=== PATIENT | male | born 2000 | race Caucasian/White ===

== ENCOUNTER 2022-05-02 09:09 | Emergency (ER) | payer OTHER ==
[~2022-05-02] VITALS: Ht 180.3 cm; Wt 67.4 kg
[2022-05-02] MEDS ORDERED: ACET32TAB PO (09:46)
[2022-05-02] MEDS ORDERED: IBUP-1114 PO (09:46)
[2022-05-02] MEDS ORDERED: IBUPROFEN 600MG TAB PO ONE (11:05)
[2022-05-02 11:21] VITALS: BP 109/57
== END 2022-05-02 11:29 | disposition home or self-care (01) ==
LOC: M ED 09:09
DX: U07.1 COVID-19 (principal); J02.9 Acute pharyngitis, unspecified

== ENCOUNTER → 2025-04-13 | Outpatient (CLI) | payer OTHER ==
[~2025-04-13] MED LIST: ACET32TAB PO; IBUP-1114 PO
== END ==
LOC: M RAD 06:52
PROVIDERS: ATTEND Physician Assistant Medical
DX: M51.27 Other intervertebral disc displacement, lumbosacral region (principal)

== ENCOUNTER 2025-04-25 11:31 | Emergency (ER) | payer OTHER ==
[~2025-04-25] VITALS: Ht 180.3 cm; Wt 71.5 kg
[2025-04-25] MEDS ORDERED: LIDO1ADH93 TOP (12:18)
[2025-04-25] MEDS: GABAPENTIN 300 MG CAP PO ONE (13:42)
[2025-04-25] MEDS: KETOROLAC 30 MG/ML 1 ML VIAL IV ONE (14:54)
[2025-04-25] MEDS ORDERED: NEUR300C PO (15:04)
[2025-04-25] MEDS ORDERED: MEDR4PAK PO (15:04)
[2025-04-25 15:51] VITALS: BP 129/81; TEMP 97.5; O2SAT 98
== END 2025-04-25 15:52 | disposition home or self-care (01) ==
LOC: M ED 11:31
DX: M54.40 Lumbago with sciatica, unspecified side (principal); Z79.899 Other long term (current) drug therapy; Z79.891 Long term (current) use of opiate analgesic; Z79.1 Long term (current) use of non-steroidal anti-inflammatories (NSAID)
CPT/HCPCS: 72131; 96374; 96375; 99284; J1885; J2919

== ENCOUNTER 2025-05-21 23:00 | Emergency (ER) | payer OTHER ==
[~2025-05-21] VITALS: Ht 175.3 cm; Wt 72.7 kg
[~2025-05-21 23:00] MED LIST changes: +LIDO1ADH93 TOP; +MEDR4PAK PO; +NEUR300C PO
[2025-05-22] MEDS: ONDANSETRON 4MG 2ML VIAL IV ONE (02:26)
[2025-05-22] MEDS: ACETAMINOPHEN *IV* 1,000 MG in IV 1 EA IV ONE (02:26)
[2025-05-22] MEDS: METHOCARBAMOL 1,000 MG/10 ML VIAL IV ONE (02:26)
[2025-05-22] MEDS: KETOROLAC 30 MG/ML 1 ML VIAL IV ONE (02:26)
[2025-05-22] MEDS: MORPHINE 4 MG/ML 1 ML VIAL IV PRN (02:27)
[2025-05-22] MEDS ORDERED: METH-1165 PO (04:33)
[2025-05-22] MEDS ORDERED: NAPR-837 PO (04:33)
[2025-05-22 04:45] VITALS: BP 93/55; TEMP 97.2; O2SAT 96
== END 2025-05-22 04:45 | disposition home or self-care (01) ==
LOC: M ED 23:00
DX: M54.50 Low back pain, unspecified (principal); F17.210 Nicotine dependence, cigarettes, uncomplicated; Z79.1 Long term (current) use of non-steroidal anti-inflammatories (NSAID); Z79.899 Other long term (current) drug therapy
CPT/HCPCS: 96365; 96366; 96375; 99284; J0131; J1885; J2405; J2800

== ENCOUNTER 2025-07-21 12:17 | Emergency (ER) | payer OTHER ==
[~2025-07-21 12:17] MED LIST changes: +METH-1165 PO; +NAPR-837 PO
[2025-07-21] MEDS ORDERED: TRAM50TA2 PO (12:34)
[2025-07-21] MEDS ORDERED: NAPR-885 PO (12:34)
[2025-07-21] MEDS ORDERED: TRAZ1TAB10 PO (12:36)
[2025-07-21] MEDS ORDERED: HYDR-643 PO (12:36)
[2025-07-21] MEDS ORDERED: EFFE150C3 PO (12:36)
[2025-07-21] MEDS: KETOROLAC 30 MG/ML 1 ML VIAL IV ONE (13:58)
[2025-07-21 14:07] LABS: PLATELET COUNT, AUTOMATED 286 10^3/uL (150-450)
[2025-07-21 14:35] LABS: AMPHETAMINES LEVEL URINE NEGATIVE (NEGATIVE); BARBITURATES URINE NEGATIVE (NEGATIVE); BENZODIAZEPINES URINE NEGATIVE (NEGATIVE); COCAINE METABOLITE URINE NEGATIVE (NEGATIVE); METHADONE URINE NEGATIVE (NEGATIVE); OPIATES URINE NEGATIVE (NEGATIVE); PHENCYCLIDINE URINE NEGATIVE (NEGATIVE)
[2025-07-21 14:37] LABS: ETHYL ALCOHOL (ETHANOL) < 0.003 % (0.000-0.010)
[2025-07-21 14:38] LABS: CANNABINOIDS URINE POSITIVE (NEGATIVE)
[2025-07-21 14:39] LABS: SALICYLATE LEVEL < 3.0 MG/DL (<30)
[2025-07-21 14:40] LABS: ALT/SGPT 36 U/L (7.0-40); AST/SGOT 26 U/L (<34); CALCIUM LEVEL 9.7 MG/DL (8.5-10.1); CARBON DIOXIDE LEVEL 29 MMOL/L (20-31); CHLORIDE LEVEL 104 MMOL/L (98-107); CREATININE FOR GFR 0.83 MG/DL (0.70-1.30); GLOMERULAR FILTRATION RATE > 90.0 (>60); POTASSIUM SERUM 4.0 MMOL/L (3.5-5.1); SODIUM LEVEL 143 MMOL/L (136-145)
[2025-07-21] MEDS: ACETAMINOPHEN *IV* 1,000 MG in IV 1 EA IV ONE (14:57)
[2025-07-21] MEDS ORDERED: METH-1164 PO (16:31)
[2025-07-21] MEDS ORDERED: GABA-284 PO (16:31)
[2025-07-21] MEDS ORDERED: COLE1TAB PO (16:33)
[2025-07-21] MEDS ORDERED: DICL20GE TP (16:33)
[2025-07-21] MEDS ORDERED: HOME MED LIST COMPLETE! XX SCH (16:40)
[2025-07-21] MEDS ORDERED: MEDR4PAK PO (18:55)
[2025-07-21] MEDS ORDERED: HYDR-3363 PO (18:55)
[2025-07-21 19:10] VITALS: BP 117/75; TEMP 98.2; O2SAT 98
== END 2025-07-21 19:11 | disposition home or self-care (01) ==
LOC: M ED 12:17 → EDBD 12:17 → M ED 19:11
DX: F43.0 Acute stress reaction (principal); F41.9 Anxiety disorder, unspecified; F32.A Depression, unspecified; M25.552 Pain in left hip; M51.370 Other intervertebral disc degeneration, lumbosacral region with discogenic back pain only; M43.17 Spondylolisthesis, lumbosacral region; Z79.899 Other long term (current) drug therapy
CPT/HCPCS: 72148; 80048; 80076; 80143; 80307; 82077; 84443; 85027; 96374; 96375; 99285; J1885; J2060

== ENCOUNTER 2025-09-14 21:40 | Emergency (ER) | payer OTHER ==
[~2025-09-14] VITALS: Ht 180.3 cm; Wt 72.7 kg
[~2025-09-14 21:40] MED LIST changes: +COLE1TAB PO; +DICL20GE TP; +EFFE150C3 PO; +GABA-284 PO; +HYDR-3363 PO; +HYDR-643 PO; +METH-1164 PO; +NAPR-885 PO; +TRAM50TA2 PO; +TRAZ1TAB10 PO
[2025-09-14 21:42] VITALS: BP 139/76; TEMP 97.3; O2SAT 97
== END 2025-09-14 22:50 | disposition left against medical advice (07) ==
LOC: M ED 21:40
DX: Z53.21 Procedure and treatment not carried out due to patient leaving prior to being seen by health care provider (principal)

== ENCOUNTER 2025-09-24 10:00 | Emergency (ER) | payer OTHER ==
[~2025-09-24] VITALS: Ht 180.3 cm; Wt 72.7 kg
[2025-09-24 11:05] LABS: BASO # 0.0 10^3/uL (0.0-0.2); BASO % 0.5 % (0.0-1.0); EOS # 0.3 10^3/uL (0.0-0.5); EOS % 3.9 % (0.0-3.0); LYMPH # 3.1 10^3/uL (1.5-5.0); LYMPH % 38.4 % (24.0-44.0); MONO # 0.6 10^3/uL (0.0-0.8); MONO % 7.5 % (2.0-8.0); NEUTROPHILS # 4.0 10^3/uL (1.5-8.5); NEUTROPHILS % 49.3 % (36.0-66.0); PLATELET COUNT, AUTOMATED 278 10^3/uL (150-450)
[2025-09-24 11:33] LABS: ALT/SGPT 30.0 U/L (7.0-40); AST/SGOT 23.0 U/L (<34)
[2025-09-24] MEDS: KETOROLAC 30 MG/ML 1 ML VIAL IV ONE (11:53)
[2025-09-24 12:56] VITALS: BP 112/73; TEMP 96.6; O2SAT 98
[2025-09-24] MEDS: HYDROMORPHONE HCL 0.5 MG/0.5 ML SYRINGE IV ONE (12:57)
== END 2025-09-24 13:43 | disposition home or self-care (01) ==
LOC: M ED 10:00
DX: S39.012A Strain of muscle, fascia and tendon of lower back, initial encounter (principal); W01.198A Fall on same level from slipping, tripping and stumbling with subsequent striking against other object, initial encounter; G89.29 Other chronic pain; M54.32 Sciatica, left side; M51.372 Other intervertebral disc degeneration, lumbosacral region with discogenic back pain and lower extremity pain; M25.552 Pain in left hip; M79.5 Residual foreign body in soft tissue; Z79.899 Other long term (current) drug therapy; Z79.1 Long term (current) use of non-steroidal anti-inflammatories (NSAID); Y92.009 Unspecified place in unspecified non-institutional (private) residence as the place of occurrence of the external cause; Y93.89 Activity, other specified; Y99.9 Unspecified external cause status
CPT/HCPCS: 72131; 73080; 73502; 80047; 80076; 83690; 85025; 96374; 96375; 99283; J1171; J1885